=== PATIENT | female | born 1960 | race Caucasian/White ===

== ENCOUNTER 2022-04-10 06:43 | Day surgery (SDC) | payer OTHER ==
[~2022-04-10] VITALS: Ht 165.1 cm; Wt 64.9 kg
[~2022-04-10 06:43] MED LIST: ASPI-543 PO; CITA10TA8 PO; ESTR1TAB6 PO; LORA1TAB23 PO; MET25T PO; OME20GT PO; SIMV-8 PO; TRAM50TA2 PO
[2022-04-10] MEDS ORDERED: LIDOCAINE 2%HCL (LOCAL ANESTH.) INJ 10ml MDV ONE (07:20)
[2022-04-10] MEDS ORDERED: HEPARIN IN NS 1000Units/500mL 1,500 ML ONE (07:20)
[2022-04-10] MEDS ORDERED: IODIXANOL 320MG/ML 100ML BTL IV ONE ×2 (07:20→08:01)
[2022-04-10] MEDS ORDERED: ANGIOMAX 250 MG VIAL IV ONE (07:55)
[2022-04-10] MEDS ORDERED: MIDAZOLAM HCL 2MG/2ML 2ml VIAL (1mg/ml) ONE (07:56)
[2022-04-10] MEDS ORDERED: VERAPAMIL 2.5MG/ML INJ 2ML VIAL IV ONE (07:56)
[2022-04-10] MEDS ORDERED: HEPARIN SODIUM (PORCINE) 5000 UNITS/ML 1ML VIAL ONE (07:56)
[2022-04-10] MEDS ORDERED: SODIUM CHL 0.9% 0 ML ONE (07:56)
== END 2022-04-10 10:53 | disposition home or self-care (01) ==
LOC: CATH 06:43
PROVIDERS: ATTEND Internal Medicine Cardiovascular Disease
DX: R94.39 Abnormal result of other cardiovascular function study (principal); I25.10 Atherosclerotic heart disease of native coronary artery without angina pectoris; Z87.891 Personal history of nicotine dependence; Z95.5 Presence of coronary angioplasty implant and graft; Z20.822 Contact with and (suspected) exposure to COVID-19
CPT/HCPCS: 93458; C1894; J1644; J2001; J2250; Q9967; U0003; 99152